=== PATIENT | female | born 1985 | race Caucasian/White ===

== ENCOUNTER 2024-03-23 10:20 | Emergency (ER) | payer OTHER ==
[~2024-03-23] VITALS: Ht 162.6 cm; Wt 59.0 kg
[2024-03-23] MEDS ORDERED: ACETAMINOPHEN 500 MG TABLET ONE (10:59)
[2024-03-23] MEDS: ACETAMINOPHEN 500 MG TABLET PO ONE (11:01)
[2024-03-23] MEDS: IV NORMAL SALINE 1000 ML BAG IV ONE (11:08)
[2024-03-23 11:15] LABS: HEMATOCRIT 40.4 % (31.2-41.9); HEMOGLOBIN 13.5 g/dL (10.9-14.3); LYMPHOCYTES # (AUTO) 2.7 K/uL (0.8-4.8); LYMPHOCYTES % (AUTO) 44.5 % (20.5-51.5); MEAN CORPUSCULAR HEMOGLOBIN 30.9 uug (24.7-32.8); MEAN CORPUSCULAR HGB CONC 34 g/dL (32.3-35.6); MONOCYTES # (AUTO) 1.1 K/uL (0.1-1.30); MONOCYTES % (AUTO) 18.5 % (0.0-11.0); NEUTROPHILS # (AUTO) 2.3 K/uL (1.8-8.9); PLATELET COUNT (AUTO) 241 K/uL (179-408); RED BLOOD CELL COUNT(AUTO) 4.39 MIL/uL (3.63-4.92); WHITE BLOOD COUNT (AUTO) 6.2 K/uL (3.8-11.8)
[2024-03-23 11:28] LABS: CALCIUM 8.6 mg/dL (8.5-10.1); CREATININE 0.7 mg/dL (0.6-1.3); DIFFERENTIAL COMMENT 1; POTASSIUM 3.6 mmol/L (3.5-5.1)
[2024-03-23] MEDS ORDERED: MORPHINE SULFATE 2 MG/1 ML DISP.SYRIN ONE (11:29)
[2024-03-23 11:34] LABS: ALBUMIN 3.6 g/dL (3.4-5.0); BILIRUBIN,DIRECT 0.1 mg/dL (0.0-0.2); BILIRUBIN,TOTAL 0.6 mg/dL (0.2-1.0); TOTAL PROTEIN, SERUM 6.9 g/dL (6.4-8.2)
[2024-03-23] MEDS ORDERED: ONDANSETRON 4 MG/2 ML VIAL ONE (11:34)
[2024-03-23] MEDS: MORPHINE SULFATE 2 MG/1 ML DISP.SYRIN IV ONE (11:40)
[2024-03-23] MEDS: ONDANSETRON 4 MG/2 ML VIAL IV ONE (11:41)
[2024-03-23 12:41] LABS: *URINE HCG, QUAL NEGATIVE (NEGATIVE)
[2024-03-23] MEDS ORDERED: IOHEXOL 300MG/ML 100 ML INFUS..BTL ONE (12:55)
[2024-03-23] MEDS ORDERED: SWABABLE VALVE TRANSFER SET EA MC ONE (12:55)
[2024-03-23] MEDS ORDERED: IV NORMAL SALINE 250 ML IV ONE (12:57)
[2024-03-23] MEDS ORDERED: IBUP-1955 PO (14:08)
[2024-03-23] MEDS ORDERED: CYCL5TAB PO (14:08)
[2024-03-23] MEDS ORDERED: LIDO30AD10 TP (14:08)
[2024-03-23 14:43] VITALS: BP 110/89; O2SAT 99
[2024-03-23 18:44] LABS: BASOPHILS % (MANUAL) 0 % (0-2); EOSINOPHILS % (MANUAL) 3 % (0-8); MONOCYTES % (MANUAL) 15 % (2-10); NEUTROPHILS % (MANUAL) 45 % (42-75)
[2024-03-23 18:45] LABS: LYMPHOCYTES % (MANUAL) 37 % (20-40)
== END 2024-03-23 14:46 | disposition home or self-care (01) ==
LOC: ER 10:20
DX: S16.1XXA Strain of muscle, fascia and tendon at neck level, initial encounter (principal); S83.92XA Sprain of unspecified site of left knee, initial encounter; S09.8XXA Other specified injuries of head, initial encounter; G89.29 Other chronic pain; R07.89 Other chest pain; M79.602 Pain in left arm; M79.10 Myalgia, unspecified site; M54.9 Dorsalgia, unspecified; R10.9 Unspecified abdominal pain; M25.532 Pain in left wrist; M25.522 Pain in left elbow; M25.512 Pain in left shoulder; Z20.822 Contact with and (suspected) exposure to COVID-19; V43.52XA Car driver injured in collision with other type car in traffic accident, initial encounter; Y93.89 Activity, other specified; Y92.488 Other paved roadways as the place of occurrence of the external cause; Y99.8 Other external cause status
CPT/HCPCS: 36415; 70030-TC; 70450; 71260; 72125; 73030; 73080; 73110; 84703; 85025; 85730; 86850; 86900; 86901; A4606; A4663; A9150; J2270; J2405; J7040; Q9967

== ENCOUNTER 2024-05-10 15:54 | Emergency (ER) | payer OTHER ==
[~2024-05-10] VITALS: Ht 162.6 cm; Wt 59.0 kg
[~2024-05-10 15:54] MED LIST: CYCL5TAB PO; IBUP-1955 PO; LIDO30AD10 TP
[2024-05-10 17:35] VITALS: O2SAT 99
== END 2024-05-10 22:26 | disposition left against medical advice (07) ==
LOC: ER 15:54
DX: R50.9 Fever, unspecified (principal); Z53.21 Procedure and treatment not carried out due to patient leaving prior to being seen by health care provider
CPT/HCPCS: A4606; A4663